=== PATIENT | male | born 1965 | race Caucasian/White ===

== ENCOUNTER 2018-06-14 08:31 | Day surgery (SDC) | payer BC ==
--- NOTE | 2018-06-13 10:59 | RAD REPORT ---
EXAM DESCRIPTION: RAD - Chest Pa And Lat (2 Views) - 06/13/2018 10:53 am CLINICAL HISTORY: preop Chest pain. COMPARISON: No comparisons FINDINGS: The lungs are clear. The heart is normal in size. No displaced fractures. IMPRESSION: No acute or concerning finding suspected.
[2018-06-13 12:05] LABS: Absolute Lymphocytes (CBC) 1.9 K/uL (0.7-4.9); Absolute Monocytes 0.6 K/uL (0.1-1.3); Absolute Neutrophil 3.7 K/uL (1.8-8.0); Basophils % 0.4 % (0-1.3); Eosinophils % 3.5 % (0-4.4); Hematocrit 45.6 % (39.6-49.0); Lymphocytes % 30.2 % (15.3-44.8); MPV 9.6 fL (7.6-11.3); Monocytes % 8.8 % (3.3-12.3); RBC Red Blood Cell Count 5.05 M/uL (4.33-5.43)
[2018-06-13 12:15] LABS: BUN Blood Urea Nitrogen 25 mg/dL (7-18); Bicarbonate 31 mmol/L (21-32); Glucose Level 96 mg/dL (74-106); Potassium 4.3 mmol/L (3.5-5.1); Sodium Level 139 mmol/L (136-145)
[2018-06-14] MEDS ORDERED: CEFAZOLIN/SWI 1gm 1 GM/10 ML SYR ONE (08:47)
[2018-06-14] MEDS ORDERED: Ringers Lactate 1,000 ML IV ONE ×2 (08:47→12:03)
[2018-06-14] MEDS ORDERED: BUPIVACAINE 0.5% PF 10 ML VIAL ONE (09:08)
[2018-06-14] MEDS ORDERED: PROPOFOL 200 MG/20 ML VIAL IV ONE (09:42)
[2018-06-14] MEDS ORDERED: LIDOCAINE 2% MPF 5 ML VIAL ONE (09:43)
[2018-06-14] MEDS ORDERED: MIDAZOLAM HCL 2 MG/2 ML INJ ONE (09:43)
[2018-06-14] MEDS ORDERED: FENTANYL CITR 100 MCG/2 ML ONE (09:43)
[2018-06-14] MEDS ORDERED: ONDANSETRON 4 MG/2 ML VIAL ONE ×2 (09:43→13:12)
[2018-06-14] MEDS ORDERED: ROCURONIUM 50 MG/5 ML VIAL IV ONE (09:43)
[2018-06-14] MEDS ORDERED: GLYCOPYRROLATE 0.2 MG/ML SYR ONE (11:09)
[2018-06-14] MEDS ORDERED: NEOSTIGMINE 1 MG/ML -10 ML VIAL ONE (11:09)
[2018-06-14] MEDS: HYDROMORPHONE HCL 2 MG/ML inj ONE ×3 (11:30→12:19)
[2018-06-14] MEDS ORDERED: KETOROLAC 30 MG/ML INJ ONE (11:54)
[2018-06-14] MEDS ORDERED: HYDROCODONE/APAP 7.5/325 MG TAB ONE (13:11)
--- NOTE | 2018-06-14 17:42 | DS ---
Date of Discharge: 06/14/2018 Discharge Note: The patient will go to Day Surgery and home when stable. Disposition: Home. Condition: Stable. Discharge Instructions: Resume home medications and diet. Activity as tolerated. No heavy lifting. Remove outer dressing in 2 days. Shower. Keep wound clean and dry. Keep Steri-Strips on all time s. Ice pack. Scrotal support. Tylenol No. 3 one tablet p.o. q.4h. p.r.n. pain. /MARINA Voice ID: [id number] Report ID: [id number]
--- NOTE | 2018-06-14 17:42 | OP ---
Date of Procedure: 06/14/2018 Surgeon: Zackary Norwood MD [employer]: MARY Jones. Preoperative Diagnosis: Incarcerated left inguinal hernia. Postoperative Diagnosis: Incarcerated left inguinal hernia. Procedure: Repair of incarcerated left inguinal hernia. Estimated Blood Loss: Minimal. Specimen: Cord lipoma and hernia sac. Finding: As above. Anesthesia: General. Complication: None. Disposition: The patient tolerated the procedure in stable condition and taken to the Recovery in go od general condition. Procedure In Detail: The patient was brought to the OR and placed in supine position. General anest hesia was begun. The patient was prepped and draped in usual sterile fashion. Marcaine 0.5% was inf iltrated locally. A 15-blade was used to make a 4 cm oblique incision between the left pubic tubercl e and anterior iliac superior spine. Subcutaneous tissue was divided. The Jane fascia identified and divided. Aponeurosis was greatly attenuated, was not really present because of the patient's siz e. The cord structures and ilioinguinal nerve were identified, mobilized to the pubic tubercle, skel etonized. A large incarcerated left inguinal hernia sac identified with bowel, which was reduced anitra k into the peritoneal cavity. There was a large cord lipoma as well. High ligation with 2-0 chromic ties were done of the cord lipoma, and suture ligature with 2-0 Prolene was used to close the openin g of the hernia sac and hernia sac was excised and sent to Pathology as specimen. Then, Marlex mesh plug placed in the internal ring and secured with VersaTack stapler. Then the floor was weak also. It was reinforced with 2-0 Prolene starting at the pubic tubercle and joining the conjoint tendon to the shelving edge, and then after that Marlex mesh plug was placed and secured with VersaTack stapler . The [place] mesh was placed as well, secured medially to the pubic tubercle, superiorly to the conjo int tendon, inferiorly to the shelving edge, and laterally to each other. Then the cord structures a nd ilioinguinal nerve were placed back in anatomical location, and then 3-0 chromic used to reapproxi mate the Jane fascia, then 3-0 chromic used to close the skin. Sterile dressing was applied. The patient was awakened and taken to Recovery in good general condition. /MODL Voice ID: [id number] Report ID: [id number]
== END 2018-06-14 13:50 | disposition home or self-care (01) ==
LOC: OR 08:31
PROVIDERS: ATTEND Surgery
PROC: 0YU60JZ Supplement Left Inguinal Region with Synthetic Substitute, Open Approach (ICD-10-PCS; principal; 2018-06-14 10:15)
DX: K40.30 Unilateral inguinal hernia, with obstruction, without gangrene, not specified as recurrent (principal); D17.6 Benign lipomatous neoplasm of spermatic cord; I10 Essential (primary) hypertension; E78.00 Pure hypercholesterolemia, unspecified; M10.9 Gout, unspecified; Z79.899 Other long term (current) drug therapy
CPT/HCPCS: 36415; 71046; 80048; 85025; 88302; J0690; J1170; J2250; J2405; J2704; J2710; J3010

== ENCOUNTER 2021-11-22 07:01 | Day surgery (SDC) | payer BC ==
--- NOTE | 2021-11-17 16:05 | RAD REPORT ---
EXAM DESCRIPTION: RAD - Chest Pa And Lat (2 Views) - 11/17/2021 3:59 pm CLINICAL HISTORY: PREOP COMPARISON: Chest Pa And Lat (2 Views) dated 06/13/2018 FINDINGS: Lines: None. Lungs: No evidence of edema or pneumonia. Pleural: No significant pleural effusions or pneumothorax. Cardiac: The heart size is within normal limits. Bones: No acute fractures. Other: IMPRESSION: No acute cardiopulmonary disease.
[2021-11-17 16:06] LABS: Hematocrit 46.6 % (39.6-49.0); Lymphocytes % 25.5 % (15.3-44.8); MCV 90.5 fL (80-100); MPV 9.2 fL (7.6-11.3); RBC Red Blood Cell Count 5.15 M/uL (4.33-5.43)
[2021-11-17 16:19] LABS: SARS-CoV-2 Antigen Rapid Res Negative (Negative)
[2021-11-17 16:36] LABS: Potassium 3.8 mmol/L (3.5-5.1)
--- NOTE | 2021-11-18 15:13 | EKG ---
Test Date: 2021-11-17 Test Time: 15:32:27 Process Expert: TAE MEASUREMENT RESULTS: Intervals: Rate: 83 SC: 162 QRSD: 116 QT: 376 QTc: 441 [place]: P: 49 SC: 162 QRS: 0 T: 56 INTERPRETIVE STATEMENTS: Normal sinus rhythm Low voltage QRS Incomplete right bundle branch block Borderline ECG No previous ECG available for comparison Electronically Signed On 11-18-21 15:11:47 CDT by Julius Urrutia
[2021-11-22] MEDS ORDERED: Ringers Lactate 1,000 ML IV ONE (07:16)
[2021-11-22] MEDS ORDERED: CEFAZOLIN SODIUM 1 GM/VIAL ONE (07:16)
[2021-11-22] MEDS ORDERED: propofoL 200 MG/20 ML VIAL IV ONE (08:24)
[2021-11-22] MEDS ORDERED: ONDANSETRON 4 MG/2 ML VIAL ONE (08:24)
[2021-11-22] MEDS ORDERED: LIDOCAINE 1% MPF 5 ML VIAL ONE (08:24)
[2021-11-22] MEDS ORDERED: MIDAZOLAM HCL 2 MG/2 ML INJ ONE (08:24)
[2021-11-22] MEDS ORDERED: FENTANYL CITR 100 MCG/2 ML ONE (08:24)
[2021-11-22] MEDS ORDERED: dexAMETHasone 10 MG/ML VIAL ONE (08:24)
[2021-11-22] MEDS ORDERED: ROCURONIUM 50 MG/5 ML VIAL IV ONE (08:46)
[2021-11-22] MEDS ORDERED: EPHEDRINE SULF 50 MG/ML VIAL ONE (09:06)
[2021-11-22] MEDS ORDERED: GLYCOPYRROLATE 0.2 MG/ML SYR ONE ×2 (09:15→09:16)
[2021-11-22] MEDS ORDERED: NEOSTIGMINE 1 MG/ML -10 ML VIAL ONE (09:15)
[2021-11-22] MEDS ORDERED: HYDROCODONE/APAP 7.5/325 MG TAB PO PRN (09:21)
--- NOTE | 2021-11-22 09:27 | P.OP ---
Date of Service: 11/22/21 Preop diagnosis: Left elbow and left back mass Postop diagnosis: Same Procedure performed: Wide excision left elbow mass 5 x 3 cm, wide excision left back mass 4 x 2 cm Both wounds closed with layered closure Surgeon: Zackary Norwood MD [employer]imming Coach: MARY Jones Estimated blood loss: Minimal Specimen: Left elbow and left back mass Findings: As above Anesthesia: General Complications: None Drains: None Fluids and blood products: Nonapplicable Disposition: Recovery room Operative note: Patient brought to the OR and placed in the supine position. General anesthesia begun. Patient placed in the right lateral position. Patient prepped and draped in the usual sterile fashion. Marcaine 0.5% infiltrated locally for postop pain control. Then a 5 cm incision made over the left proximal elbow. Subcutaneous tissue divided and the 3 cm mass excised down through the subcutaneous tissue and sent to pathology as specimen. Wound irrigated and bleeding controlled cautery. 3-0 chromic used to approximate subcutaneous tissue. 4-0 nylon used to close skin. Sterile dressing applied. Then a 4 x 1.5 cm incision made on the left back. Subcutaneous tissue divided and a raised mass approximately 2 cm excised and sent to pathology as specimen. The mass was in the deep subcutaneous tissue. Wound irrigated and bleeding controlled with cautery. Flaps created. 2-0 chromic used to reapproximate subcutaneous tissue. 4-0 nylon used close skin. Sterile dressing applied and patient awakened. Patient taken to recovery room in good general condition. CC: Dr. Borjas's office
[2021-11-22 11:05] VITALS: BP 96/67; TEMP 96.9; O2SAT 99
[2021-11-22] MEDS ORDERED: SUCCINYLCHOLINE 20 MG/ML (10 ML) IV ONE (12:27)
== END 2021-11-22 10:55 | disposition home or self-care (01) ==
LOC: OR 07:01
PROVIDERS: ATTEND Surgery
PROC: 0JBH0ZZ Excision of Left Lower Arm Subcutaneous Tissue and Fascia, Open Approach (ICD-10-PCS; principal; 2021-11-22 08:30)
PROC: 0JB70ZZ Excision of Back Subcutaneous Tissue and Fascia, Open Approach (ICD-10-PCS; 2021-11-22 08:30)
DX: L72.0 Epidermal cyst (principal); R22.2 Localized swelling, mass and lump, trunk; Z20.822 Contact with and (suspected) exposure to COVID-19
CPT/HCPCS: 93005; 85025; 80048; 36415; 88304; 71046; 87811; 11406; 11404; J2704; J2710; J0330; J2250; J3010; J1100; J7120; J2405; J0690; 88305